=== PATIENT | male | born 1960 | race Caucasian/White ===

== ENCOUNTER → 2017-01-25 | Outpatient (REF) ==
[~2017-01-25] MED LIST: OMEPRAZOLE20 MG PO
== END ==
LOC: ZLAB.WCH 15:08
DX: Z01.89 Encounter for other specified special examinations (principal)
CPT/HCPCS: G0103

== ENCOUNTER 2018-04-20 07:58 | Day surgery (SDC) | payer BC ==
[~2018-04-20] VITALS: Ht 177.8 cm; Wt 86.5 kg
[2018-04-20 08:31] VITALS: BP 139/83; PULSE 64; TEMP 98.3
[2018-04-20] MEDS ORDERED: ZANTAC 150MG T150 MG PO (08:41)
[2018-04-20] MEDS ORDERED: LOFIBRA67 MG PO (08:42)
[2018-04-20] MEDS ORDERED: MULTIPLE VITAMI1 CAP PO (08:43)
[2018-04-20] MEDS ORDERED: BENADRYL50 MG PO (08:43)
[2018-04-20] MEDS ORDERED: EPA FISH OIL1 SGL PO (08:43)
[2018-04-20] MEDS ORDERED: METAMUCIL3.4 GM/DOS PO (08:45)
[2018-04-20] MEDS ORDERED: FLONASEALLERGY NS (08:45)
[2018-04-20 09:55] VITALS: BP 114/74; PULSE 68; TEMP 97.7
[2018-04-20 10:10] VITALS: BP 112/70; PULSE 63
[2018-04-20 10:25] VITALS: BP 110/73; PULSE 63
[2018-04-20 10:40] VITALS: BP 108/79; PULSE 65
== END 2018-04-20 10:50 | disposition home or self-care (01) ==
LOC: SDCO 07:58
DX: Z12.11 Encounter for screening for malignant neoplasm of colon (principal); K63.5 Polyp of colon; K57.30 Diverticulosis of large intestine without perforation or abscess without bleeding; E78.00 Pure hypercholesterolemia, unspecified; K21.9 Gastro-esophageal reflux disease without esophagitis; E11.9 Type 2 diabetes mellitus without complications; Z88.2 Allergy status to sulfonamides; Z88.1 Allergy status to other antibiotic agents; Z83.79 Family history of other diseases of the digestive system; Z83.71 Family history of colonic polyps
CPT/HCPCS: OP; J2250; J3010; J7030

== ENCOUNTER 2019-08-16 07:26 | Day surgery (SDC) | payer BC ==
[~2019-08-16] VITALS: Ht 176.5 cm; Wt 93.1 kg
[~2019-08-16 07:26] MED LIST changes: +BENADRYL50 MG PO; +EPA FISH OIL1 SGL PO; +FLONASEALLERGY NS; +LOFIBRA67 MG PO; +METAMUCIL3.4 GM/DOS PO; +MULTIPLE VITAMI1 CAP PO; +ZANTAC 150MG T150 MG PO
[2019-08-16] MEDS ORDERED: ZYLOPRIM 300MG300 MG PO (07:49)
[2019-08-16] MEDS ORDERED: LIPITOR 10MG10 MG PO (07:50)
[2019-08-16 08:14] VITALS: BP 133/86; PULSE 78; TEMP 98.1
[2019-08-16 09:25] VITALS: BP 125/82; PULSE 84; TEMP 97.9
--- NOTE | 2019-08-16 09:25 | NUR ---
TO [facility] PER CART FROM [facility]. ALERT ORIENTED X 3, TALKING TO STAFF AND . AMBULATED TO RECLINER WITH ASSIST AND TOLERATED WELL. RECEIVED WATER
[2019-08-16 09:40] VITALS: BP 114/83; PULSE 73
--- NOTE | 2019-08-16 09:40 | NUR ---
RECEIVED OLU PUDDING.
[2019-08-16 09:55] VITALS: BP 130/78; PULSE 69
--- NOTE | 2019-08-16 09:55 | NUR ---
DISCONTINUED IV AND INT- CATHETER INTACT PATIENT GETTING DRESSED
--- NOTE | 2019-08-16 10:10 | NUR ---
RECEIVED DISCHARGED INSTRUCTIONS AND VERBALIZED UNDERSTANDING.
--- NOTE | 2019-08-16 10:15 | NUR ---
DISCHARGED PER WC BY NURSING STAFF TO PRIVATE CAR IN CARE OF -[facility].
== END 2019-08-16 10:20 | disposition home or self-care (01) ==
LOC: SDCO 07:26
DX: K22.2 Esophageal obstruction (principal); K21.9 Gastro-esophageal reflux disease without esophagitis; K57.30 Diverticulosis of large intestine without perforation or abscess without bleeding; E11.9 Type 2 diabetes mellitus without complications; E78.00 Pure hypercholesterolemia, unspecified; K92.1 Melena; Z88.2 Allergy status to sulfonamides; Z88.1 Allergy status to other antibiotic agents; Z79.51 Long term (current) use of inhaled steroids; Z86.010 Personal history of colon polyps
CPT/HCPCS: C1726; J2250; J3010; J7030

== ENCOUNTER → 2020-05-08 | Outpatient (CLI) | payer BC ==
[~2020-05-08] MED LIST changes: +LIPITOR 10MG10 MG PO; +ZYLOPRIM 300MG300 MG PO
== END ==
LOC: COL.RAD 07:05
DX: K56.609 Unspecified intestinal obstruction, unspecified as to partial versus complete obstruction (principal); K80.20 Calculus of gallbladder without cholecystitis without obstruction; N26.1 Atrophy of kidney (terminal); R19.7 Diarrhea, unspecified; R93.5 Abnormal findings on diagnostic imaging of other abdominal regions, including retroperitoneum
CPT/HCPCS: A9585